=== PATIENT | female | born 1970 | race Caucasian/White ===

== ENCOUNTER 2022-11-15 05:37 | Day surgery (SDC) | payer BC ==
[~2022-11-15] VITALS: Ht 152.4 cm; Wt 63.5 kg
[2022-11-15] MEDS ORDERED: ceFAZolin SODIUM 2 GM in D5W 100 ML IV ONE (07:00)
[2022-11-15] MEDS ORDERED: SUCCINYLCHOLINE CHLORIDE 20 MG/ML(QUELICIN) ONE (07:42)
[2022-11-15] MEDS ORDERED: HYDROmorphone 2 MG/ML VIAL ONE (07:42)
[2022-11-15] MEDS ORDERED: SEVOFLURANE 15 MIN GAS INH ONE (07:42)
[2022-11-15] MEDS ORDERED: MIDAZOLAM HCL 2 MG/2 ML VIAL (VERSED) ONE (07:42)
[2022-11-15] MEDS ORDERED: KETOROLAC TROMETHAMINE 30 MG VIAL ONE (07:42)
[2022-11-15] MEDS ORDERED: LR 1,000 ML IV.SOLN IV ONE (07:42)
[2022-11-15] MEDS ORDERED: ePHEDrine sulfate 50 MG/ML VIAL ONE (07:42)
[2022-11-15] MEDS ORDERED: NEOSTIGMINE METHYLSULFATE 1 MG/ML, 10 ML VIAL ONE (07:42)
[2022-11-15] MEDS ORDERED: PROPOFOL 200MG/ 20ML VIAL (DIPRIVAN) IV ONE (07:42)
[2022-11-15] MEDS ORDERED: GLYCOPYRROLATE 0.2 MG/ML VIAL ONE (07:42)
[2022-11-15] MEDS ORDERED: fentaNYL CITRATE/PF 100 MCG/2 ML AMP ONE (07:42)
[2022-11-15] MEDS ORDERED: LIDOCAINE 2%, 20 ML MDV ONE (07:42)
[2022-11-15] MEDS ORDERED: METOCLOPRAMIDE HCL 10 MG/2 ML VIAL ONE (07:42)
[2022-11-15] MEDS ORDERED: ROCURONIUM BROMIDE 10 MG/ML (ZEMURON) ONE (07:42)
[2022-11-15] MEDS ORDERED: ONDANSETRON HCL 4 MG/2 ML VIAL ONE (07:42)
[2022-11-15] MEDS ORDERED: NS IRRIG SOLN 1000 ML IR ONE (07:42)
[2022-11-15] MEDS ORDERED: BUPIVACAINE /PF 0.25% 30 ML VIAL INJ ONE (07:42)
[2022-11-15] MEDS ORDERED: HYDROmorphone 2 MG/ML VIAL IVP PRN (08:30)
[2022-11-15] MEDS ORDERED: KETOROLAC TROMETHAMINE 30 MG VIAL IVP PRN (08:30)
[2022-11-15] MEDS ORDERED: ONDANSETRON HCL 4 MG/2 ML VIAL IVP PRN (08:30)
[2022-11-15] MEDS ORDERED: LR 1,000 ML IV SCH (08:30)
[2022-11-15] MEDS ORDERED: HYDROmorphone 1 MG/ML INJ. CARTRIDGE IVP PRN (08:30)
[2022-11-15] MEDS ORDERED: ACETAMINOPHEN I.V. 1000 MG 100 ML IV ONE (08:48)
[2022-11-15] MEDS ORDERED: HYDROmorphone 1 MG/ML INJ. CARTRIDGE ONE (10:39)
[2022-11-15 13:49] VITALS: O2SAT 98
[2022-11-15 17:39] VITALS: BP_SYST 136; PULSE 78; RESP 17
== END 2022-11-15 12:45 | disposition home or self-care (01) ==
LOC: SDS 05:37 → SMU 05:37 → SDS 12:45
PROVIDERS: ATTEND Obstetrics & Gynecology
DX: D25.9 Leiomyoma of uterus, unspecified (principal); N83.202 Unspecified ovarian cyst, left side; N83.201 Unspecified ovarian cyst, right side; R10.2 Pelvic and perineal pain; E11.9 Type 2 diabetes mellitus without complications; E78.5 Hyperlipidemia, unspecified; G89.18 Other acute postprocedural pain; N95.1 Menopausal and female climacteric states; Z79.899 Other long term (current) drug therapy; Z90.710 Acquired absence of both cervix and uterus
CPT/HCPCS: 87081; 58661; 58578; 86886; 86900; 86901; 36415; 93005; 71045; 88305; 88307; J3490 ×2; J1885; J2001; J2765; J3465; J2405; J2704; J0330; J3010; J1170 ×2; J7060; J7120; C1727; J0131; J2710